=== PATIENT | female | born 1980 | race Asian ===

== ENCOUNTER 2016-06-15 22:53 | Emergency (ER) | payer BC ==
[2016-06-16] MEDS ORDERED: Triamcinolone 0.025% OINT * 15 GM TUBE TOPICAL ONE (00:11)
[2016-06-16] MEDS ORDERED: Triamcinolone 0.1% CREAM (NF) 15 GM TUBE TOPICAL ONE (00:11)
--- NOTE | 2016-06-16 00:35 | ED ---
Skin Complaint - HPI Summary HPI Summary: Patient arrives with a CC of left upper arm redness and pruritus. She states this morning she was dusting out her attic. She states she is allergic to dust , and almost immediately experienced diffuse red small pruritic areas over face , arms, and upper torso. She notes this has happened before but will disappear after taking a shower. However, after she took a shower this morning all the spots dissipated except for a small lesion on her arm which was extremely pruritic and she scratched it vigorously. After this, the lesion on the arm spread. She has been applying hydrocortisone cream all day with no relief. - History of Current Complaint Chief Complaint: EDRashSkinAbscess Time Seen by Provider: 06/15/16 23:30 Stated Complaint: RASH/POSSIBLE ALLERGIC REACTION Hx Obtained From: Patient Hx Last Menstrual Period: IUD, light menstration Onset/Duration: Started Hours Ago Skin Exposure Onset/Duration: Hours Ago Timing: Constant Onset Severity: Mild Current Severity: Moderate Pain Scale Used: no pain - pruritic Skin Location: Discrete, Arm - upper left Character: Swelling, Pruritus, Redness Aggravating Symptom(s): Clothing, Touch Alleviating Symptom(s): Nothing Related History: Possible Reaction to: Environmental Exposure - dust - Additional Pertinent History Primary Care Physician: LAMAR - Allergy/Home Medications Allergies/Adverse Reactions: Allergies Allergy/AdvReac Type Severity Reaction Status Date / Time No Known Allergies Allergy Verified 05/21/16 07:39 PMH/Surg Hx/FS Hx/Imm Hx Previously Healthy: Yes Endocrine/Hematology History: Denies: Hx Diabetes Cardiovascular History: Reports: Hx Angina Denies: Hx Congestive Heart Failure - MOTHER WITH CHF, Hx Coronary Artery Disease, Hx Hypercholesterolemia, Hx Hypertension, Hx Myocardial Infarction, Hx Valvular Heart Disease Respiratory History: Denies: Hx Asthma, Hx Chronic Obstructive Pulmonary Disease (COPD) History: Denies: Hx Renal Disease Psychiatric History: Reports: Hx Anxiety, Hx Panic Disorder - Surgical History Surgery Procedure, Year, and Place: carpal tunnel surgery 2011. reconstructive nose surgery 2009 Infectious Disease History: No Infectious Disease History: Denies: Traveled Outside the [place] in Last 30 Days - Family History Known Family History: Positive: Cardiac Disease - mother [place] at 46 - Social History Occupation: Employed Full-time Lives: With Family Alcohol Use: Occasionally Hx Substance Use: No Substance Use Type: Reports: None Hx Tobacco Use: Yes Smoking Status (MU): Heavy Every Day Tobacco Smoker Type: Cigarettes Review of Systems Constitutional: Negative Eyes: Negative ENT: Negative Cardiovascular: Negative Respiratory: Negative Musculoskeletal: Negative Skin: Negative Positive: Rash - pruritis Neurological: Negative Positive: Anxious All Other Systems Reviewed And Are Negative: Yes Physical Exam Triage Information Reviewed: Yes Vital Signs On Initial Exam: Initial Vitals Temp Pulse Resp BP Pulse Ox 98.0 F 86 18 136/90 100 06/15/16 22:56 06/15/16 22:56 06/15/16 22:56 06/15/16 22:56 06/15/16 22:56 Vital Signs Reviewed: Yes Appearance: Positive: Well-Appearing, No Pain Distress, Well-Nourished Skin: Positive: Warm, Skin Color Reflects Adequate Perfusion, Other - 8x10 erythematous slightly raised Head/Face: Positive: Normal Head/Face Inspection Eyes: Positive: Normal, EOMI, KARISSA ENT: Positive: Normal ENT inspection Neck: Positive: Supple, Nontender, No Lymphadenopathy Respiratory/Lung Sounds: Positive: Clear to Auscultation, Breath Sounds Present Cardiovascular: Positive: Normal Musculoskeletal: Positive: Normal, Strength/ROM Intact Neurological: Positive: Normal Psychiatric: Positive: Normal Diagnostics - Vital Signs Vital Signs Temp Pulse Resp BP Pulse Ox 06/15/16 22:56 98.0 F 86 18 136/90 100 - Laboratory Lab Statement: Any lab studies that have been ordered have been reviewed, and results considered in the medical decision making process. Course/Dx - Differential Diagnoses - Skin Complaint Differential Diagnoses: Cellulitis, Contact Dermatitis, Urticaria - Diagnoses Provider Diagnoses: Contact dermatitis Discharge - Discharge Plan Condition: Stable Disposition: HOME Patient Education Materials: Diphenhydramine (By mouth), Contact Dermatitis (ED ) Referrals: Pat Carter MD [Primary Care Provider] - Additional Instructions: Cool compresses to the area as needed for relief. Benadryl 25mg at bedtime May take Claritin or other off brand over the counter allergy medication during the day Triamcinolone cream 1% to area twice daily for 1 week. Images - Images Full Body (No Head): 1 - pruritic erythematous slightly raised lesion
[2016-06-16] MEDS ORDERED: diPHENhydraMINE PO* 25 MG PO ONE (00:45)
[2016-06-16 01:50] VITALS: BP 128/88
== END 2016-06-16 01:15 | disposition home or self-care (01) ==
LOC: ED 22:53
DX: L25.9 Unspecified contact dermatitis, unspecified cause (principal); L29.9 Pruritus, unspecified; R22.9 Localized swelling, mass and lump, unspecified; R21 Rash and other nonspecific skin eruption
CPT/HCPCS: 99282; A9270-GY

== ENCOUNTER 2016-06-17 19:42 | Emergency (ER) | payer BC ==
[2016-06-17] MEDS ORDERED: Ondansetron INJ* 2 MG/ML VIAL IV ONE (20:27)
[2016-06-17] MEDS ORDERED: LORazepam INJ* 2 MG/ML 1 ML VIAL IV ONE (20:27)
[2016-06-17] MEDS ORDERED: Meclizine TAB* 12.5 MG PO ONE (20:27)
[2016-06-17] MEDS ORDERED: NS 0.9% 1000 ML* 2,000 ML IV ONE (20:27)
[2016-06-17 21:21] LABS: Hematocrit 41 % (35-47); Hemoglobin 13.6 g/dl (12.0-16.0); Mean Corpuscular HGB Conc 33 g/dl (31-36); Mean Corpuscular Hemoglobin 26 pg (27-31); Mean Corpuscular Volume 79 fL (80-97); Mean Platelet Volume 7 um3 (7.4-10.4); Red Blood Count 5.27 10^6/ul (4.0-5.4); Red Cell Distribution Width 15 % (10.5-15); White Blood Count 9.1 10^3/ul (3.5-10.8)
[2016-06-17 21:34] LABS: ALT 11 U/L (7-52); AST 15 U/L (13-39); Albumin 4.2 g/dL (3.2-5.2); Alkaline Phosphatase 38 U/L (34-104); Anion Gap 8 mmol/L (2-11); BUN/Creatinine Ratio 20.6 (8-20); Blood Urea Nitrogen 13 mg/dL (6-24); C Reactive Protein 1.57 mg/L (< 5.00); CO2 Carbon Dioxide 22 mmol/L (22-32); Calcium 9.3 mg/dL (8.6-10.3); Chloride 106 mmol/L (101-111); EGFR African American 138.3 (>60); EGFR Non-African American 107.5 (>60); Globulin 2.3 g/dL (2-4); Glucose 157 mg/dL (70-100); Lipase 26 U/L (11.0-82.0); Potassium 3.6 mmol/L (3.5-5.0); Sodium 136 mmol/L (133-145); Total Protein 6.5 g/dL (6.4-8.9)
[2016-06-17 22:26] LABS: TSH (Thyroid Stimulating Horm) 1.17 mcIU/mL (0.34-5.60)
[2016-06-17] MEDS ORDERED: Ondansetron ODT TAB* 4 MG PO ONE (22:36)
[2016-06-17 22:41] LABS: Urine Bacteria Absent (Absent); Urine Bilirubin Negative (Negative); Urine Glucose Negative (Negative); Urine Nitrite Negative (Negative)
--- NOTE | 2016-06-17 22:41 | ED ---
Christal Mojica Erika, scribed for Ephraim Coleman MD on 06/17/16 at 2100 . Dizziness - HPI Summary HPI Summary: Patient is a 36-year-old female presenting to the ED with a CC of dizziness starting this morning. She describes the dizziness as "like a boat rocking back and forth." Associated symptoms include generalized weakness, lightheadedness, and nausea. Pt denies abdominal pain, vomiting, diarrhea, and urinary symptoms. Pt reports that she has been taking a 10 day course of augmentin since 2016 for a right-sided ear infection. Pt denies ear pain today, although notes she still had some yesterday. Pt reports that she feels that these other symptoms are triggering her anxiety - pt takes clonazepam. Pt took benadryl today. - History Of Current Complaint Chief Complaint: EDNauseaVomitDiarrh Stated Complaint: NAUSEA/DIZZINESS Time Seen by Provider: 06/17/16 20:04 Hx Obtained From: Patient Onset/Duration: Still Present Timing: Constant Severity Currently: Moderate Character: Lightheaded, Weak, Dizzy Alleviating Factor(s): Nothing Associated Signs And Symptoms: Positive: Nausea, Change In Medication - augmentin started 1 week ago. Negative: Vomiting, Diarrhea - Allergies/Home Medications Allergies/Adverse Reactions: Allergies Allergy/AdvReac Type Severity Reaction Status Date / Time No Known Allergies Allergy Verified 05/21/16 07:39 PMH/Surg Hx/FS Hx/Imm Hx Endocrine/Hematology History: Denies: Hx Diabetes Cardiovascular History: Reports: Hx Angina Denies: Hx Congestive Heart Failure - MOTHER WITH CHF, Hx Coronary Artery Disease, Hx Hypercholesterolemia, Hx Hypertension, Hx Myocardial Infarction, Hx Valvular Heart Disease Respiratory History: Denies: Hx Asthma, Hx Chronic Obstructive Pulmonary Disease (COPD) History: Denies: Hx Renal Disease Psychiatric History: Reports: Hx Anxiety, Hx Panic Disorder - Surgical History Surgery Procedure, Year, and Place: carpal tunnel surgery 2011. reconstructive nose surgery 2009 Infectious Disease History: No Infectious Disease History: Denies: Traveled Outside the [place] in Last 30 Days - Family History Known Family History: Positive: Cardiac Disease - mother [place] at 46 - Social History Alcohol Use: Occasionally Hx Substance Use: No Substance Use Type: Reports: None Hx Tobacco Use: Yes Smoking Status (MU): Heavy Every Day Tobacco Smoker Type: Cigarettes Review of Systems Positive: Nausea. Negative: Abdominal Pain, Vomiting, Diarrhea Negative: dysuria, frequency Neurological: Other - dizziness, lightheadedness Positive: Weakness All Other Systems Reviewed And Are Negative: Yes Physical Exam Triage Information Reviewed: Yes Vital Signs On Initial Exam: Initial Vitals Temp Pulse Resp BP Pulse Ox 97.8 F 92 20 149/100 100 06/17/16 19:45 06/17/16 19:45 06/17/16 19:45 06/17/16 19:45 06/17/16 19:45 Vital Signs Reviewed: Yes Appearance: Positive: Well-Appearing, No Pain Distress Skin: Positive: Warm, Skin Color Reflects Adequate Perfusion, Dry Head/Face: Positive: Normal Head/Face Inspection Eyes: Positive: EOMI, KARISSA ENT: Positive: Other - serous otitis media on the right with erythema Neck: Positive: Supple, Nontender Respiratory/Lung Sounds: Positive: Clear to Auscultation, Breath Sounds Present Cardiovascular: Positive: RRR Abdomen Description: Positive: Nontender, Soft Bowel Sounds: Positive: Present Musculoskeletal: Positive: Normal, Strength/ROM Intact Neurological: Positive: Normal, Sensory/Motor Intact, Alert, Oriented to Person Place, Time Psychiatric: Positive: Affect/Mood Appropriate Diagnostics - Vital Signs Vital Signs Temp Pulse Resp BP Pulse Ox 06/17/16 19:45 97.8 F 92 20 149/100 100 - Laboratory Lab Results: Lab Results 06/17/16 06/17/16 06/17/16 Range/Units 21:10 21:10 21:10 WBC 9.1 (3.5-10.8) 10^3/ul RBC 5.27 (4.0-5.4) 10^6/ul Hgb 13.6 (12.0-16.0) g/dl Hct 41 (35-47) % MCV 79 L (80-97) fL MCH 26 L (27-31) pg MCHC 33 (31-36) g/dl RDW 15 (10.5-15) % Plt Count 219 (150-450) 10^3/ul MPV 7 L (7.4-10.4) um3 Neut % (Auto) 51.0 (38-83) % Lymph % (Auto) 39.8 (25-47) % [place] % (Auto) 6.6 (1-9) % Eos % (Auto) 2.1 (0-6) % Baso % (Auto) 0.5 (0-2) % Absolute Neuts (auto) 4.6 (1.5-7.7) 10^3/ul Absolute Lymphs (auto) 3.6 (1.0-4.8) 10^3/ul Absolute Monos (auto) 0.6 (0-0.8) 10^3/ul Absolute Eos (auto) 0.2 (0-0.6) 10^3/ul Absolute Basos (auto) 0 (0-0.2) 10^3/ul Absolute Nucleated RBC 0.01 10^3/ul Nucleated RBC % 0.1 Sodium 136 (133-145) mmol/L Potassium 3.6 (3.5-5.0) mmol/L Chloride 106 (101-111) mmol/L Carbon Dioxide 22 (22-32) mmol/L Anion Gap 8 (2-11) mmol/L BUN 13 (6-24) mg/dL Creatinine 0.63 (0.51-0.95) mg/dL Est GFR ( Amer) 138.3 (>60) Est GFR (Non-Af Amer) 107.5 (>60) BUN/Creatinine Ratio 20.6 H (8-20) Glucose 157 H (70-100) mg/dL Lactic Acid 1.7 (0.5-2.0) mmol/L Calcium 9.3 (8.6-10.3) mg/dL Total Bilirubin 0.50 (0.2-1.0) mg/dL AST 15 (13-39) U/L ALT 11 (7-52) U/L Alkaline Phosphatase 38 (34-104) U/L C-Reactive Protein 1.57 (< 5.00) mg/L Total Protein 6.5 (6.4-8.9) g/dL Albumin 4.2 (3.2-5.2) g/dL Globulin 2.3 (2-4) g/dL Albumin/Globulin Ratio 1.8 (1-3) Lipase 26 (11.0-82.0) U/L TSH 1.17 (0.34-5.60) mcIU/mL Beta HCG, Quant < 0.60 mIU/mL Result Diagrams: 06/17/16 21:10 01/22/17 21:10 Lab Statement: Any lab studies that have been ordered have been reviewed, and results considered in the medical decision making process. Dizzy Course/Dx - Course Assessment/Plan: DISCUSSED RESULTS WITH PATIENT. SHE WILL DISCUSS FURTHER ANXIETY TREATMENT WITH HER DOCTOR. DISCHARGE HOME STABLE. - Diagnoses Provider Diagnoses: Nausea, Dizziness, Anxiety Discharge - Discharge Plan Condition: Stable Disposition: HOME Patient Education Materials: Acute Nausea and Vomiting (ED), Dizziness (ED), Anxiety (ED) Referrals: Pat Carter MD [Primary Care Provider] - Additional Instructions: FOLLOW UP WITH YOUR DOCTOR. RETURN TO THE EMERGENCY DEPARTMENT FOR ANY WORSENING OF YOUR CONDITION OR QUESTIONS OR CONCERNS. The documentation as recorded by the Christal curtis Erika accurately reflects the service I personally performed and the decisions made by me, Ephraim Coleman MD.
[2016-06-17 23:13] VITALS: BP 126/74
== END 2016-06-17 23:13 | disposition home or self-care (01) ==
LOC: ED 19:42
DX: R42 Dizziness and giddiness (principal); F17.210 Nicotine dependence, cigarettes, uncomplicated; R53.1 Weakness; R11.0 Nausea
CPT/HCPCS: 36415; 80053; 81003; 81015; 83605; 83690; 84443; 84702; 85025; 86140; 87086; 96374; 96375; 99282; A9270-GY; J2060; J2405

== ENCOUNTER 2016-07-08 20:42 | Emergency (ER) | payer BC ==
[2016-07-08] MEDS ORDERED: Orphenadrine Citrate IV* 30 MG/ML 2 ML VIAL IV ONE (21:08)
[2016-07-08] MEDS ORDERED: Aspirin Low Dose CHEW TAB* 81 MG PO ONE (21:08)
[2016-07-08] MEDS ORDERED: NS 0.9% 1000 ML* 1,000 ML IV ONE (21:08)
[2016-07-08] MEDS ORDERED: Dexamethasone IV* 4 MG/ML 1 ML (4 MG) IV SLOW PU ONE (21:08)
[2016-07-08] MEDS ORDERED: Acetaminophen TAB* 325 MG PO ONE (21:08)
[2016-07-08] MEDS ORDERED: Ketorolac INJ* 30 MG/ML 1 ML VIAL IV PUSH ONE (21:08)
[2016-07-08 21:45] LABS: Hematocrit 42 % (35-47); Hemoglobin 13.9 g/dl (12.0-16.0); Mean Corpuscular HGB Conc 33 g/dl (31-36); Mean Corpuscular Hemoglobin 26 pg (27-31); Mean Corpuscular Volume 79 fL (80-97); Mean Platelet Volume 7 um3 (7.4-10.4); Red Blood Count 5.37 10^6/ul (4.0-5.4); Red Cell Distribution Width 15 % (10.5-15); White Blood Count 9.7 10^3/ul (3.5-10.8)
[2016-07-08 22:01] LABS: Albumin 4.3 g/dL (3.2-5.2); BUN/Creatinine Ratio 22.8 (8-20); Calcium 9.5 mg/dL (8.6-10.3); EGFR African American 106.5 (>60); EGFR Non-African American 82.8 (>60); Globulin 2.7 g/dL (2-4); Potassium 3.7 mmol/L (3.5-5.0); Total Bilirubin 0.3 mg/dL (0.2-1.0)
--- NOTE | 2016-07-08 22:07 | RAD ---
INDICATION: Back pain with radiation to the chest COMPARISON: Most recent comparison chest x-rays dated May 21, 2016 TECHNIQUE: PA and lateral views of the chest were obtained. FINDINGS: The heart and mediastinum are normal in size and contour. The lungs are grossly clear. There is no evidence of large pleural effusion. Visualized bones are normal for the patient's age. There is no radiographic evidence of free air beneath the diaphragm IMPRESSION: No radiographic evidence of acute cardiopulmonary disease.
--- NOTE | 2016-07-08 22:08 | RAD ---
INDICATION: Back pain after moving furniture COMPARISON: None. TECHNIQUE: 2 views of the thoracic spine were obtained. FINDINGS: The vertebra are in normal alignment. No fracture is seen. Disc spaces appear maintained. . IMPRESSION: No evidence of fracture or subluxation.
[2016-07-08] MEDS ORDERED: oxyCODONE/Acetamin 5/325 MG* TAB PO ONE (22:26)
--- NOTE | 2016-07-08 22:31 | ED ---
Eduardo Mojica SooYoung, scribed for Benson Demarco MD on 07/08/16 at 2104 . Back Pain - HPI Summary HPI Summary: A 36 y/o F presents to [facility] with R back and shoulder pain onset approx 1630. Radiating to R flank and R chest. Pt states she was pushing a dresser, and she felt something pull in her back, near her R shoulder. The pain is sharp and goes up her spine and radiates around her side to her chest. Pain is rated as 8 out of 10. Pert PMHx: anxiety. Pt is a smoker, 1/2 PPD. - History of Current Complaint Chief Complaint: EDChestPainROMI Stated Complaint: CHEST PAIN Time Seen by Provider: 07/08/16 20:59 Hx Obtained From: Patient Hx Last Menstrual Period: IUD, light menstration Onset/Duration: Sudden Onset, Still Present Onset/Duration: Started Hours Ago, Still Present Timing: Constant Back Pain Location: Is Diffuse - R shoulder/back, radiating around to R flank, R breast, R-side of chest Severity Currently: Moderate Pain Intensity: 8 Pain Scale Used: 0-10 Numeric Character: Sharp - Allergies/Home Medications Allergies/Adverse Reactions: Allergies Allergy/AdvReac Type Severity Reaction Status Date / Time No Known Allergies Allergy Verified 05/21/16 07:39 PMH/Surg Hx/FS Hx/Imm Hx Previously Healthy: No Endocrine/Hematology History: Denies: Hx Diabetes Cardiovascular History: Reports: Hx Angina Denies: Hx Congestive Heart Failure - MOTHER WITH CHF, Hx Coronary Artery Disease, Hx Hypercholesterolemia, Hx Hypertension, Hx Myocardial Infarction, Hx Valvular Heart Disease Respiratory History: Denies: Hx Asthma, Hx Chronic Obstructive Pulmonary Disease (COPD) History: Denies: Hx Renal Disease Psychiatric History: Reports: Hx Anxiety, Hx Panic Disorder - Surgical History Surgery Procedure, Year, and Place: carpal tunnel surgery 2011. reconstructive nose surgery 2009 Infectious Disease History: No Infectious Disease History: Denies: Traveled Outside the [place] in Last 30 Days - Family History Known Family History: Positive: Cardiac Disease - mother [place] at 46, of CHF - Social History Occupation: Employed Full-time Lives: With Family Alcohol Use: Occasionally Hx Substance Use: No Substance Use Type: Reports: None Hx Tobacco Use: Yes Smoking Status (MU): Heavy Every Day Tobacco Smoker Type: Cigarettes Review of Systems Positive: Chest Pain - radiating from back Positive: flank pain - radiating from back Positive: Other - pos: R back pain All Other Systems Reviewed And Are Negative: Yes Physical Exam - Summary Physical Exam Summary: VITAL SIGNS: Reviewed. GENERAL: Patient is a well developed and nourished female who is lying comfortable in the stretcher. Patient is not in any acute respiratory distress. HEAD AND FACE: No signs of trauma. EYES: PERRLA, EOMI x 2. EARS: Hearing grossly intact. Ear canals and tympanic membranes are WNL MOUTH: Oropharynx within normal limits. NECK: Supple, trachea is midline, no adenopathy, no JVD. CHEST: Symmetric, no tenderness at palpation LUNGS: Clear to auscultation bilaterally. No wheezing or crackles. CVS: RRR, S1 and S2 present, no murmurs or gallops appreciated. ABDOMEN: Soft, NT. No signs of distention. Positive BS. No rebound no guarding, and no masses palpated. EXTREMITIES: FROM in all major joints, no edema, no cyanosis or clubbing. NEURO: Alert and oriented x 3. No acute neurological deficits. Speech is normal and follows commands. SKIN: Dry and warm Back: There is no ecchymosis, no deformity, positive paraspinal muscle tenderness in the thoracic spine. No vertebral tenderness. There is pin point tenderness. Triage Information Reviewed: Yes Vital Signs On Initial Exam: Initial Vitals Temp Pulse Resp BP Pulse Ox 99.5 F 110 16 142/100 100 07/08/16 20:52 07/08/16 20:52 07/08/16 20:52 07/08/16 20:52 07/08/16 20:52 Vital Signs Reviewed: Yes Diagnostics - Vital Signs Vital Signs Temp Pulse Resp BP Pulse Ox 07/08/16 20:52 99.5 F 110 16 142/100 100 - Laboratory Result Diagrams: 07/08/16 21:35 07/08/16 21:35 Lab Statement: Any lab studies that have been ordered have been reviewed, and results considered in the medical decision making process. - Radiology CXR Xray Interpretation: No Acute Changes - Impression: No radiographic evidence of acute cardiopulmonary dz Radiology Interpretation Completed By: Radiologist SP THORACOLUMBAR Xray Interpretation: No Acute Changes - IMPRESSION: No evidence of fx or sublaxation Radiology Interpretation Completed By: Radiologist - EKG 1 EKG Rhythm: Sinus Tachycardia - at [address] Segment: Normal Back Pain Course/Dx - Course Assessment/Plan: A 36 y/o F presents to [facility] with R back and shoulder pain onset approx 1630. Radiating to R flank and R chest. Pt states she was pushing a dresser, and she felt something pull in her back, near her R shoulder. The pain is sharp and goes up her spine and radiates around her side to her chest. Pain is rated as 8 out of 10. Pert PMHx: anxiety. Pt is a smoker, 1/2 PPD. Blood work wnl . Troponin is 0.00. EKG sinus tach w/o MINO. T spine x ray impression : No evidence of fracture or dislocation. CXR: No acute cardiopulmonary pathology. In the ED course she was given toradol, decadron and norflex. Patient reports symptoms have improved. She will be discharge with Pain meds. At this point I discussed all the findings and test results with the patient. Patient was instructed to return to the emergency room immediately if any of the symptoms return or worsens. Patient understands and agrees. Patient is able to ambulate in the ER. Plan of care was discussed with the patient and patient understands and agrees. All questions were answered at patient satisfaction. There were no further complaints or concerns. Neurological exam before discharge: Patient is alert and oriented x 3. No acute neurological deficits. Patient is hemodynamically stable. Patient is to follow up with primary care physician in the next 2 3 days. He understands and agrees. - Diagnoses Differential Diagnosis/HQI/PQRI: Positive: Herniated Disc, Strain, Sprain Provider Diagnoses: Back pain Discharge - Discharge Plan Condition: Stable Disposition: HOME Prescriptions: Ibuprofen TAB* [Motrin TAB* 800 MG] 800 mg PO ONCE PRN #30 tab PRN Reason: Pain Methocarbamol TAB* [Robaxin TAB*] 750 mg PO TID #9 tab Methylprednisolone [Medrol Dosepak 4 MG*] 0 mg PO .SEE DYLAN INSTRUCTION #1 dylan oxyCODONE/Acetamin 5/325 MG* [Percocet 5/325 TAB*] 1 tab PO Q6H PRN #12 tab MDD Max 4 tabs / day PRN Reason: Pain Referrals: Pat Carter MD [Primary Care Provider] - The documentation as recorded by the Eduardo curtis SooYoung accurately reflects the service I personally performed and the decisions made by me, Benson Demarco MD.
[2016-07-08 23:51] VITALS: BP 120/89
== END 2016-07-08 23:30 | disposition home or self-care (01) ==
LOC: ED 20:42
DX: M54.9 Dorsalgia, unspecified (principal); M25.511 Pain in right shoulder; X50.0XXA Overexertion from strenuous movement or load, initial encounter; Y93.89 Activity, other specified; Y92.9 Unspecified place or not applicable; F17.210 Nicotine dependence, cigarettes, uncomplicated; F41.9 Anxiety disorder, unspecified
CPT/HCPCS: 36415; 71020; 72080; 80053; 82550; 82553; 84484; 85025; 93005; 96374; 96375; 99283; A9270-GY; J1100; J1885; J2360

== ENCOUNTER 2016-07-18 22:35 | Emergency (ER) | payer BC ==
[2016-07-19 01:29] VITALS: BP 110/70
--- NOTE | 2016-09-05 14:43 | ED ---
Complex/Multi-Sys Presentation - HPI Summary HPI Summary: Pt here w/ Lt sided extremity pain and new onset LANCASTER today. She has had Lt lower extremity pain for a few weeks now and just pushing through this. She more recently developed Lt sided arm pain, worse w/ movement and tender to touch. Today she noticed a LANCASTER and took ibuprofen as well as anxiety medication. This helped but she's here as she's concerned. Denies fever, chills, neck pain, chest pain, difficulty breathing, numbness, tingling, weakness, photophobia, N/V /D, tinnitus, slurred speech, confusion, difficulty concentrating, skin changes , urinary sx, change in bowel habits, ab pain. She does not smoke nor take OBC' s - no h/o clotting or neurological issues. She has been under stress and admits to drinking caffeine routinely. May not drink as much water as she should. Pain in leg, arm are worse w/ movement. Some relief w/ ibuprofen and rest. - History Of Current Complaint Chief Complaint: EDHeadache Time Seen by Provider: 07/18/16 23:51 Hx Obtained From: Patient, Family/Maintainer Central Office - - Allergies/Home Medications Allergies/Adverse Reactions: Allergies Allergy/AdvReac Type Severity Reaction Status Date / Time No Known Allergies Allergy Verified 08/15/16 20:35 PMH/Surg Hx/FS Hx/Imm Hx Previously Healthy: Yes Endocrine/Hematology History: Denies: Hx Anticoagulant Therapy, Hx Blood Disorders, Hx Diabetes, Hx Thyroid Disease, Hx Anemia, Hx Coagulopothy Cardiovascular History: Reports: Hx Angina Denies: Hx Congestive Heart Failure - MOTHER WITH CHF, Hx Coronary Artery Disease, Hx Hypercholesterolemia, Hx Hypertension, Hx Myocardial Infarction, Hx Valvular Heart Disease Respiratory History: Denies: Hx Asthma, Hx Chronic Obstructive Pulmonary Disease (COPD) History: Denies: Hx Renal Disease Musculoskeletal History: Denies: Hx Arthritis Neurological History: Denies: Hx CVA, Hx Migraine, Hx Nerve Disease, Hx Spinal Cord Injury Psychiatric History: Reports: Hx Anxiety, Hx Panic Disorder - Surgical History Surgery Procedure, Year, and Place: carpal tunnel surgery 2011. reconstructive nose surgery 2009 Infectious Disease History: Yes Infectious Disease History: Denies: Traveled Outside the [place] in Last 30 Days - Family History Known Family History: Positive: Cardiac Disease - mother [place] at 46, of CHF - Social History Lives: With Family Alcohol Use: Occasionally Hx Substance Use: No Substance Use Type: Reports: None Hx Tobacco Use: Yes Smoking Status (MU): Current Every Day Smoker Type: Cigarettes Review of Systems Constitutional: Negative Eyes: Negative ENT: Negative Cardiovascular: Negative Respiratory: Negative Gastrointestinal: Negative Genitourinary: Negative Musculoskeletal: Other - see HPI Skin: Negative Positive: Headache - see HPI Positive: Anxious All Other Systems Reviewed And Are Negative: Yes Physical Exam Triage Information Reviewed: Yes Vital Signs On Initial Exam: Initial Vitals Temp Pulse Resp BP Pulse Ox 98.4 F 81 20 142/100 100 07/18/16 22:37 07/18/16 22:37 07/18/16 22:37 07/18/16 22:37 07/18/16 22:37 Vital Signs Reviewed: Yes Appearance: Positive: Well-Appearing, No Pain Distress, Well-Nourished - concerned, anxious Skin: Positive: Warm, Dry - no erythema, no ecchymosis, no lesions over affected areas Head/Face: Positive: Normal Head/Face Inspection - sinuses NTTP Eyes: Positive: Normal, EOMI, KARISSA - no photophobia, Conjunctiva Clear ENT: Positive: Normal ENT inspection, Hearing grossly normal, Pharynx normal, TMs normal. Negative: Nasal congestion, Nasal drainage, Tonsillar swelling, Tonsillar exudate Neck: Positive: No Lymphadenopathy, Other: - Lt trpezius m and paracervical mm are hypertonic and taught - TTP but has some relief w/ massage pressure - able ot reproduce LANCASTER w/ palpation in certain places; spinous pp NTTP; Rt side of neck less tender to palpation and although not has tight, still has some tension here. Respiratory/Lung Sounds: Positive: Clear to Auscultation, Breath Sounds Present. Negative: Rales, Rhonchi, Wheezes Cardiovascular: Positive: Normal, RRR, Pulses are Symmetrical in both Upper and Lower Extremities - pulses + 2 in UE's and LE's, cap refill < 2 secs all equal B/L, S1, S2. Negative: Murmur, Rub, Leg Edema Left, Leg Edema Right Abdomen Description: Positive: Nontender, Soft Bowel Sounds: Positive: Present Musculoskeletal: Positive: Strength/ROM Intact, Pain @ - muscles from trapezius , shoulder and Lt UE are TTP however pain improves w/ massage pressure; LE w/o pain at this time Neurological: Positive: Normal, Sensory/Motor Intact, Alert, Oriented to Person Place, Time, CN Intact II-III, Finger to Nose, Facial Symmetry, Speech Normal. Negative: Pronator Drift Present Psychiatric: Positive: Anxious - but cooperative and relieved after reviewing sources of pain and discussing most likely PAUL in nature, most likely rooting from biomechanics, sublcinical dehydration from caffeine use and lack of rehydration as well as stress w/o tension relief - [place] Coma Scale Coma Scale Total: 15 Diagnostics - Vital Signs Vital Signs Temp Pulse Resp BP Pulse Ox 07/19/16 01:10 98.2 F 07/19/16 01:00 81 110/70 94 07/19/16 00:30 80 116/86 98 07/19/16 00:04 83 97 07/19/16 00:01 85 117/78 98 07/19/16 00:00 87 97 07/18/16 23:57 84 97 07/18/16 23:55 113/73 07/18/16 22:37 98.4 F 81 20 142/100 100 - Laboratory Lab Statement: Any lab studies that have been ordered have been reviewed, and results considered in the medical decision making process. Complex Multi-Symp Course/Dx Course Of Treatment: Pt presets w/ 2 week h/o LLE pain. More recently Lt UE pain and today LANCASTER. After evaluation, pt does not appear to be having a CVA but rather PAUL tension, triggering pain and LANCASTER. Pain was reproducanle w/ movements and palpation and briefy relieves w/ massage. She agrees to seek outpt care w/ PCP for PAUL tension as well as anxiety. Reviewed danger s/sx of when to return to ED. Pt and agree w/ plan. She is comfortable upon d/c. - Diagnoses Provider Diagnoses: Muscle tension headache, Muscle strain of upper extremity, Anxiety Discharge - Discharge Plan Condition: Stable Disposition: HOME Patient Education Materials: Muscle Strain (ED), How to Give a Back Massage ( GEN), Anxiety (ED) Forms: *Work Release Referrals: Pat Carter MD [Primary Care Provider] - Additional Instructions: Stay hydrated Avoid caffeine Consider a calcium and magnesium supplement for muscle health You may also consider anti-inflammatory therapies such as ibuprofen but also foods and spices. You may further investigate options through your PCP. You may also try home massage, stretching and topical analgesics for pain relief. Follow-up with your PCP to discuss body work options such as physical therapy, aquatherapy, massage therapy, acupuncture, etc. If you develop headache with visual loss, weakness, vomiting, neck pain + fever , chest pain, shortness of breath, return to ED Attempt stress reduction techniques and counseling - discuss with your PCP.
== END 2016-07-19 01:10 | disposition home or self-care (01) ==
LOC: ED 22:35
DX: G44.209 Tension-type headache, unspecified, not intractable (principal); R51 Headache; S46.919A Strain of unspecified muscle, fascia and tendon at shoulder and upper arm level, unspecified arm, initial encounter; F41.9 Anxiety disorder, unspecified; F17.210 Nicotine dependence, cigarettes, uncomplicated; X58.XXXA Exposure to other specified factors, initial encounter
CPT/HCPCS: 99282

== ENCOUNTER 2016-08-15 20:31 | Emergency (ER) | payer BC ==
[2016-08-15] MEDS ORDERED: Aspirin Low Dose CHEW TAB* 81 MG PO ONE (21:10)
--- NOTE | 2016-08-15 22:16 | RAD ---
Indication: Chest pain. 2 views of the chest including dual energy PA views demonstrate no mediastinal shift. Heart is of normal size and configuration. Lung rao demonstrate no pleural fluid, pneumonia or pneumothorax. No changes noted since July 08, 2016. IMPRESSION: No active cardiopulmonary disease is noted.
[2016-08-15 23:37] LABS: ALT 12 U/L (7-52); Albumin 4.5 g/dL (3.2-5.2); Alkaline Phosphatase 39 U/L (34-104); BUN/Creatinine Ratio 25.7 (8-20); Blood Urea Nitrogen 18 mg/dL (6-24); CO2 Carbon Dioxide 21 mmol/L (22-32); Calcium 9.4 mg/dL (8.6-10.3); Chloride 106 mmol/L (101-111); EGFR African American 122.5 (>60); EGFR Non-African American 95.2 (>60); Globulin 2.9 g/dL (2-4); Glucose 96 mg/dL (70-100); Sodium 134 mmol/L (133-145); Total Protein 7.4 g/dL (6.4-8.9)
--- NOTE | 2016-08-15 23:46 | ED ---
Parrish Mojica Michael, scribed for Sabas Landeros MD on 08/15/16 at 2116 . HPI Chest Pain - HPI Summary HPI Summary: 36 y/o female comes to the ED presenting with intermittent episodes of sharp mid sternal chest pain for the past week. The pt reports that the episodes of chest pain have worsened throughout the day today. She states the chest pain is not aggravated by palpation or deep breathes. The pt has not taken any medication for the pain. All other symptoms are denied. The PMHx is significant for anxiety and the FHx is significant for CHF. - History of Current Complaint Chief Complaint: EDChestPainROMI Time Seen by Provider: 08/15/16 21:02 Hx Obtained From: Patient, Medical Records Onset/Duration: Started Weeks Ago, Still Present Timing: Intermittent Initial Severity: Mild Current Severity: Moderate Pain Intensity: 3 Pain Scale Used: 0-10 Numeric Chest Pain Location: Mid Sternal Chest Pain Radiates: No Character: Sharp/Stabbing Aggravating Factor(s): Nothing Alleviating Factor(s): Nothing Associated Signs and Symptoms: Positive: Chest Pain - Additional Pertinent History Primary Care Physician: [id number] - Allergy/Home Medications Allergies/Adverse Reactions: Allergies Allergy/AdvReac Type Severity Reaction Status Date / Time No Known Allergies Allergy Verified 08/15/16 20:35 PMH/Surg Hx/FS Hx/Imm Hx Endocrine/Hematology History: Denies: Hx Diabetes Cardiovascular History: Reports: Hx Angina Denies: Hx Congestive Heart Failure - MOTHER WITH CHF, Hx Coronary Artery Disease, Hx Hypercholesterolemia, Hx Hypertension, Hx Myocardial Infarction, Hx Valvular Heart Disease Respiratory History: Denies: Hx Asthma, Hx Chronic Obstructive Pulmonary Disease (COPD) History: Denies: Hx Renal Disease Psychiatric History: Reports: Hx Anxiety, Hx Panic Disorder - Surgical History Surgery Procedure, Year, and Place: carpal tunnel surgery 2012. reconstructive nose surgery 2009 Infectious Disease History: No Infectious Disease History: Denies: Traveled Outside the [place] in Last 30 Days - Family History Known Family History: Positive: Cardiac Disease - mother [place] at 46, of CHF - Social History Occupation: Employed Full-time Lives: With Family Alcohol Use: Occasionally Hx Substance Use: No Substance Use Type: Reports: None Hx Tobacco Use: Yes Smoking Status (MU): Heavy Every Day Tobacco Smoker Type: Cigarettes Review of Systems Negative: Fever Positive: Chest Pain All Other Systems Reviewed And Are Negative: Yes Physical Exam Triage Information Reviewed: Yes Vital Signs On Initial Exam: Initial Vitals Temp Pulse Resp BP Pulse Ox 97.7 F 77 18 136/91 100 08/15/16 20:34 08/15/16 20:34 08/15/16 20:34 08/15/16 20:34 08/15/16 20:34 Vital Signs Reviewed: Yes Appearance: Positive: Well-Appearing, No Pain Distress - anxious Skin: Positive: Warm Head/Face: Positive: Normal Head/Face Inspection Eyes: Positive: KARISSA ENT: Positive: Hearing grossly normal Neck: Positive: Supple, Nontender Respiratory/Lung Sounds: Positive: Clear to Auscultation, Breath Sounds Present Cardiovascular: Positive: RRR. Negative: Murmur Abdomen Description: Positive: Nontender, Soft Bowel Sounds: Positive: Present Musculoskeletal: Positive: Strength/ROM Intact Neurological: Positive: Sensory/Motor Intact, Alert, Oriented to Person Place, Time, Normal Gait Psychiatric: Positive: Anxious Diagnostics - Vital Signs Vital Signs Temp Pulse Resp BP Pulse Ox 08/15/16 20:34 97.7 F 77 18 136/91 100 - Laboratory Lab Results: Lab Results 08/15/16 08/15/16 Range/Units 23:09 23:09 Sodium 134 (133-145) mmol/L Potassium TNP Chloride 106 (101-111) mmol/L Carbon Dioxide 21 L (22-32) mmol/L Anion Gap TNP BUN 18 (6-24) mg/dL Creatinine 0.70 (0.51-0.95) mg/dL Est GFR ( Amer) 122.5 (>60) Est GFR (Non-Af Amer) 95.2 (>60) BUN/Creatinine Ratio 25.7 H (8-20) Glucose 96 (70-100) mg/dL Lactic Acid 0.8 (0.5-2.0) mmol/L Calcium 9.4 (8.6-10.3) mg/dL Total Bilirubin 0.60 (0.2-1.0) mg/dL AST TNP ALT 12 (7-52) U/L Alkaline Phosphatase 39 (34-104) U/L Troponin I 0.00 (<0.04) ng/mL Total Protein 7.4 (6.4-8.9) g/dL Albumin 4.5 (3.2-5.2) g/dL Globulin 2.9 (2-4) g/dL Albumin/Globulin Ratio 1.6 (1-3) Result Diagrams: 08/15/16 23:37 08/15/16 23:37 Lab Statement: Any lab studies that have been ordered have been reviewed, and results considered in the medical decision making process. - Radiology CXR Xray Interpretation: No Acute Changes Radiology Interpretation Completed By: Radiologist - EKG EK EKG Rhythm: Sinus Rhythm - [address] Segment: Normal Ectopy: None Chest Pain Course/Dx - Diagnoses Provider Diagnoses: Chest pain Discharge - Discharge Plan Condition: Stable Disposition: HOME Patient Education Materials: Chest Pain (ED) Referrals: Pat Carter MD [Primary Care Provider] - Additional Instructions: You should follow up with Dr. Carter within the next 2-4 days. Please return to the ED if your symptoms worsen. The documentation as recorded by the Parrish curtis Michael accurately reflects the service I personally performed and the decisions made by me, Sabas Landeros MD.
[2016-08-15 23:54] LABS: Hematocrit 41 % (35-47); Hemoglobin 13.2 g/dl (12.0-16.0); Mean Corpuscular HGB Conc 32 g/dl (31-36); Mean Corpuscular Hemoglobin 26 pg (27-31); Mean Corpuscular Volume 79 fL (80-97); Mean Platelet Volume 7 um3 (7.4-10.4); Red Blood Count 5.18 10^6/ul (4.0-5.4); Red Cell Distribution Width 14 % (10.5-15); White Blood Count 10.8 10^3/ul (3.5-10.8)
[2016-08-16 00:02] VITALS: BP 128/76
== END 2016-08-16 00:01 | disposition home or self-care (01) ==
LOC: ED 20:31
DX: R07.9 Chest pain, unspecified (principal); F17.210 Nicotine dependence, cigarettes, uncomplicated
CPT/HCPCS: 36415; 71020; 80053; 83605; 84484; 85025; 93005; 99283; A9270-GY

== ENCOUNTER 2016-12-27 17:07 | Emergency (ER) | payer BC ==
--- NOTE | 2016-12-27 21:51 | ED ---
Hali Mojica Alfonso, scribed for Sabas Landeros MD on 12/27/16 at 2146 . Palpitations / Dysrhythmia - HPI Summary HPI Summary: This patient is a 36 year old F presenting to [facility] with a chief complaint of racing palpitations since 4 days ago. Pt states she has been feeling off. Pt rates the pain 6/10 in severity. Symptoms aggravated and alleviated by nothing. Pt reports chest tightness and migraine headache (resolved). She denies any new medications. - History of Current Complaint Chief Complaint: EDHypertension Time Seen by Provider: 12/27/16 21:40 Hx Obtained From: Patient Onset/Duration: Sudden Onset, Lasting Days - 4, Still Present Timing: Constant Severity Initially: Moderate Severity Currently: Moderate Character: Fast Aggravating: Nothing Alleviating: Nothing Associated Signs & Symptoms: Chest Pain - tightness - Allergy/Home Medications Allergies/Adverse Reactions: Allergies Allergy/AdvReac Type Severity Reaction Status Date / Time No Known Allergies Allergy Verified 12/27/16 17:23 PMH/Surg Hx/FS Hx/Imm Hx Endocrine/Hematology History: Denies: Hx Diabetes Cardiovascular History: Reports: Hx Angina Denies: Hx Congestive Heart Failure - MOTHER WITH CHF, Hx Coronary Artery Disease, Hx Hypercholesterolemia, Hx Hypertension, Hx Myocardial Infarction, Hx Valvular Heart Disease Respiratory History: Denies: Hx Asthma, Hx Chronic Obstructive Pulmonary Disease (COPD) History: Denies: Hx Renal Disease Psychiatric History: Reports: Hx Anxiety, Hx Panic Disorder - Surgical History Surgery Procedure, Year, and Place: carpal tunnel surgery 2011. reconstructive nose surgery 2009 Infectious Disease History: Denies: Traveled Outside the [place] in Last 30 Days - Family History Known Family History: Positive: Cardiac Disease - mother [place] at 46, of CHF - Social History Alcohol Use: Occasionally Hx Substance Use: No Substance Use Type: Reports: None Hx Tobacco Use: Yes Smoking Status (MU): Heavy Every Day Tobacco Smoker Type: Cigarettes Review of Systems Positive: Palpitations - palpitations , Chest Pain - Tightness Positive: Headache - migraine headache (resolved) All Other Systems Reviewed And Are Negative: Yes Physical Exam Triage Information Reviewed: Yes Vital Signs On Initial Exam: Initial Vitals Temp Pulse Resp BP Pulse Ox 99.3 F 82 20 147/96 100 12/27/16 17:23 12/27/16 17:23 12/27/16 17:23 12/27/16 17:23 12/27/16 17:23 Vital Signs Reviewed: Yes Appearance: Positive: Well-Appearing, No Pain Distress Skin: Positive: Warm Head/Face: Positive: Normal Head/Face Inspection Eyes: Positive: KARISSA ENT: Positive: Hearing grossly normal Neck: Positive: Supple Respiratory/Lung Sounds: Positive: Clear to Auscultation, Breath Sounds Present Cardiovascular: Positive: RRR Abdomen Description: Positive: Nontender, Soft Bowel Sounds: Positive: Present Musculoskeletal: Positive: Strength/ROM Intact Neurological: Positive: Sensory/Motor Intact, Normal Gait Psychiatric: Positive: Affect/Mood Appropriate Diagnostics - Vital Signs Vital Signs Temp Pulse Resp BP Pulse Ox 12/27/16 20:45 98.5 F 65 147/95 100 12/27/16 19:20 99.4 F 83 16 145/89 100 12/27/16 17:23 99.3 F 82 20 147/96 100 - Laboratory Result Diagrams: 12/27/16 22:30 12/27/16 22:30 Lab Statement: Any lab studies that have been ordered have been reviewed, and results considered in the medical decision making process. - EKG 2234 Cardiac Rate: NL - BPM 61 EKG Rhythm: Sinus Rhythm Re-Evaluation - Re-Evaluation First Eval Comment: results d/w pt Course/Dx - Course Assessment/Plan: 36 year old F presenting to [facility] with a chief complaint of racing palpitations since 4 days ago. Pt reports chest tightness and migraine headache (resolved). She denies any new medications. EKG reveals NSR. Patient will be discharged with follow up from PCP. Pt is agreeable with this plan. - Diagnoses Provider Diagnoses: Hypertension Discharge - Discharge Plan Condition: Improved Disposition: HOME Patient Education Materials: Hypertension (ED) Referrals: Pat Carter MD [Primary Care Provider] - 3 Days The documentation as recorded by the Hali curtis Alfonso accurately reflects the service I personally performed and the decisions made by me, Sabas Landeros MD.
[2016-12-27 22:35] LABS: Hematocrit 44 % (35-47); Hemoglobin 14.2 g/dl (12.0-16.0); Mean Corpuscular HGB Conc 33 g/dl (31-36); Mean Corpuscular Hemoglobin 26 pg (27-31); Mean Corpuscular Volume 80 fL (80-97); Mean Platelet Volume 7 um3 (7.4-10.4); Red Blood Count 5.45 10^6/ul (4.0-5.4); Red Cell Distribution Width 16 % (10.5-15); White Blood Count 9.4 10^3/ul (3.5-10.8)
[2016-12-27 22:50] LABS: Albumin 4.6 g/dL (3.2-5.2); BUN/Creatinine Ratio 16.7 (8-20); Calcium 9.7 mg/dL (8.6-10.3); EGFR African American 118.5 (>60); EGFR Non-African American 92.2 (>60); Potassium 3.5 mmol/L (3.5-5.0); Total Protein 7.6 g/dL (6.4-8.9)
[2016-12-27 23:12] VITALS: BP 136/83
== END 2016-12-27 23:12 | disposition home or self-care (01) ==
LOC: ED 17:07
DX: I10 Essential (primary) hypertension (principal); R07.9 Chest pain, unspecified; R00.2 Palpitations; R51 Headache; F17.210 Nicotine dependence, cigarettes, uncomplicated
CPT/HCPCS: 36415; 80053; 85025; 93005; 99282

== ENCOUNTER 2017-01-09 00:43 | Emergency (ER) | payer BC ==
[2017-01-09] MEDS ORDERED: Aspirin Low Dose CHEW TAB* 81 MG PO ONE (01:12)
[2017-01-09 02:00] LABS: Hematocrit 40 % (35-47); Hemoglobin 13.7 g/dl (12.0-16.0); Mean Corpuscular HGB Conc 34 g/dl (31-36); Mean Corpuscular Hemoglobin 27 pg (27-31); Mean Corpuscular Volume 79 fL (80-97); Mean Platelet Volume 7 um3 (7.4-10.4); Red Blood Count 5.11 10^6/ul (4.0-5.4); Red Cell Distribution Width 15 % (10.5-15); White Blood Count 9.2 10^3/ul (3.5-10.8)
[2017-01-09 02:11] LABS: Albumin 4.4 g/dL (3.2-5.2); BUN/Creatinine Ratio 28.6 (8-20); Calcium 9.4 mg/dL (8.6-10.3); EGFR African American 109.7 (>60); EGFR Non-African American 85.3 (>60); Globulin 2.4 g/dL (2-4); Potassium 3.2 mmol/L (3.5-5.0); Total Bilirubin 0.4 mg/dL (0.2-1.0); Total Protein 6.8 g/dL (6.4-8.9)
--- NOTE | 2017-01-09 05:00 | ED ---
Hali Mojica Alfonso, scribed for Sabas Landeros MD on 01/09/17 at 0117 . HPI Chest Pain - HPI Summary HPI Summary: This patient is a 36 year old F presenting to [facility] with a chief complaint of diffuse CP. The pain radiates to her left arm and back. The patient rates the pain 8/10 in severity. Symptoms aggravated by recent stress and alleviated by nothing. 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 PMHx of anxiety and panic attacks. 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 - Additional Pertinent History Primary Care Physician: [id number] - Allergy/Home Medications Allergies/Adverse Reactions: Allergies Allergy/AdvReac Type Severity Reaction Status Date / Time No Known Allergies Allergy Verified 12/27/16 17:23 PMH/Surg Hx/FS Hx/Imm Hx Endocrine/Hematology History: Denies: Hx Diabetes Cardiovascular History: Reports: Hx Angina Denies: Hx Congestive Heart Failure - MOTHER WITH CHF, Hx Coronary Artery Disease, Hx Hypercholesterolemia, Hx Hypertension, Hx Myocardial Infarction, Hx Valvular Heart Disease Respiratory History: Denies: Hx Asthma, Hx Chronic Obstructive Pulmonary Disease (COPD) History: Denies: Hx Renal Disease Psychiatric History: Reports: Hx Anxiety, Hx Panic Disorder - Surgical History Surgery Procedure, Year, and Place: carpal tunnel surgery 2011. reconstructive nose surgery 2009 Infectious Disease History: No Infectious Disease History: Denies: Traveled Outside the [place] in Last 30 Days - Family History Known Family History: Positive: Cardiac Disease - mother [place] at 46, of CHF - Social History Alcohol Use: Occasionally Hx Substance Use: No Substance Use Type: Reports: None Hx Tobacco Use: Yes Smoking Status (MU): Heavy Every Day Tobacco Smoker Type: Cigarettes Review of Systems Negative: Fever Positive: Chest Pain - Diffuse with radiation to back and left arm. 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 All Other Systems Reviewed And Are Negative: Yes Physical Exam Triage Information Reviewed: Yes Vital Signs On Initial Exam: Initial Vitals Temp Pulse Resp BP Pulse Ox 97.9 F 79 18 159/115 98 01/09/17 00:51 01/09/17 00:51 01/09/17 00:51 01/09/17 00:51 01/09/17 00:51 Vital Signs Reviewed: Yes Appearance: Positive: Well-Appearing, No Pain Distress Skin: Positive: Warm Head/Face: Positive: Normal Head/Face Inspection Eyes: Positive: EOMI ENT: Positive: Hearing grossly normal Neck: Positive: Supple Respiratory/Lung Sounds: Positive: Clear to Auscultation, Breath Sounds Present Cardiovascular: Positive: RRR Abdomen Description: Positive: Nontender, Soft Bowel Sounds: Positive: Present Neurological: Positive: Sensory/Motor Intact, Alert, Oriented to Person Place, Time, Normal Gait Psychiatric: Positive: Affect/Mood Appropriate Diagnostics - Vital Signs Vital Signs Temp Pulse Resp BP Pulse Ox 01/09/17 00:51 97.9 F 79 18 159/115 98 - Laboratory Result Diagrams: 01/09/17 01:44 01/09/17 01:44 Lab Statement: Any lab studies that have been ordered have been reviewed, and results considered in the medical decision making process. - Radiology CXR Radiology Interpretation Completed By: ED Physician - negative exam - EKG 0129 Cardiac Rate: NL - BPM 73 EKG Rhythm: Sinus Rhythm Chest Pain Course/Dx - Course Assessment/Plan: This patient is a 36 year old F presenting to [facility] with a chief complaint of diffuse CP. The pain radiates to her left arm and back. The patient rates the pain 8/10 in severity. Symptoms aggravated by recent stress and alleviated by nothing. 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 PMHx of anxiety and panic attacks. CXR reveals a negative exam. Test results reveal two 0.00 Troponin values. In the ED course the patient was given Aspirin. Patient will be discharged with follow up from PCP. The patient is agreeable with this plan. - Diagnoses Provider Diagnoses: Chest pain Discharge - Discharge Plan Condition: Stable Disposition: HOME Patient Education Materials: Chest Pain (ED) Referrals: Pat Carter MD [Primary Care Provider] - 3 Days The documentation as recorded by the Hali curtis Alfonso accurately reflects the service I personally performed and the decisions made by me, Sabas Landeros MD.
[2017-01-09 05:14] VITALS: BP 100/72
--- NOTE | 2017-01-09 07:57 | RAD ---
Indication: Chest pain. 2 views of the chest including dual energy PA views demonstrate no mediastinal shift. Heart is of normal size and configuration. Lung rao are clear. IMPRESSION: No active cardiopulmonary disease is noted.
== END 2017-01-09 05:19 | disposition home or self-care (01) ==
LOC: ED 00:43
DX: R07.9 Chest pain, unspecified (principal); F17.210 Nicotine dependence, cigarettes, uncomplicated; R51 Headache
CPT/HCPCS: 36415; 71020; 80053; 82550; 83605; 83735; 84484; 85025; 93005; 99283; A9270-GY

== ENCOUNTER 2017-03-09 01:34 | Emergency (ER) | payer BC ==
[2017-03-09] MEDS ORDERED: Metoclopramide IV* 5 MG/ML 2 ML VIAL IV ONE (02:40)
[2017-03-09] MEDS ORDERED: diPHENhydraMINE IV* 50 MG/ML 1 ml VIAL (BENADRYL) IV ONE (02:40)
[2017-03-09] MEDS ORDERED: Ketorolac INJ* 30 MG/ML 1 ML VIAL IV PUSH ONE (02:40)
[2017-03-09] MEDS ORDERED: NS 0.9% 1000 ML* 1,000 ML IV ONE (02:41)
[2017-03-09 05:02] VITALS: BP 161/88
--- NOTE | 2017-03-09 06:10 | ED ---
Corine Mojica Rebecca, scribed for Florecita Bailon MD on 03/09/17 at 0247 . Headache - HPI Summary HPI Summary: Pt is a 36 y/o F who presents to ED c/o LANCASTER for a few days. Pain is described as throbbing and is currently severe, ranked 8/10. Treated with Tylenol and a Klonazepam which did not alleviated sx. Additionally c/o nausea, decreased appetite, chest tightness and anxiety secondary to LANCASTER. Denies diplopia, blurred vision, edema. Confirms she has been eating recently. No PMHx migraines/ headache. - History Of Current Complaint Chief Complaint: EDHeadache Time Seen by Provider: 03/09/17 01:50 Hx Obtained From: Patient Hx Last Menstrual Period: IUD, light menstration Onset/Duration: Started days ago, Still Present Currently Pain Is: Current Pain Scale(0-10)= - 8/10, Severe Character: Throbbing Aggravating Factor: Nothing Allevating Factors: Nothing Associated Signs And Symptoms: Nausea - Allergies/Home Medications Allergies/Adverse Reactions: Allergies Allergy/AdvReac Type Severity Reaction Status Date / Time No Known Allergies Allergy Verified 03/09/17 01:39 PMH/Surg Hx/FS Hx/Imm Hx Endocrine/Hematology History: Denies: Hx Diabetes Cardiovascular History: Reports: Hx Angina Denies: Hx Congestive Heart Failure - MOTHER WITH CHF, Hx Coronary Artery Disease, Hx Hypercholesterolemia, Hx Hypertension, Hx Myocardial Infarction, Hx Valvular Heart Disease Respiratory History: Denies: Hx Asthma, Hx Chronic Obstructive Pulmonary Disease (COPD) History: Denies: Hx Renal Disease Psychiatric History: Reports: Hx Anxiety, Hx Panic Disorder - Surgical History Surgery Procedure, Year, and Place: carpal tunnel surgery 2011. reconstructive nose surgery 2009 Infectious Disease History: No Infectious Disease History: Denies: Traveled Outside the [place] in Last 30 Days - Family History Known Family History: Positive: Cardiac Disease - mother [place] at 46, of CHF - Social History Alcohol Use: Occasionally Hx Substance Use: No Substance Use Type: Reports: None Hx Tobacco Use: Yes Smoking Status (MU): Heavy Every Day Tobacco Smoker Type: Cigarettes Review of Systems Negative: Blurred Vision, Diplopia Negative: Ear Ache Positive: Other - chest tightness. Negative: Chest Pain Negative: Shortness Of Breath Positive: Nausea, Other - Decreased appetite. Negative: Abdominal Pain, Vomiting, Diarrhea Negative: dysuria, hematuria Negative: Edema Negative: Rash Positive: Headache. Negative: Weakness Positive: Anxious All Other Systems Reviewed And Are Negative: Yes Physical Exam - Summary Physical Exam Summary: Appearance: Alert, conversive, nontoxic appearing, appears uncomfortable Skin: Warm, dry, no mottling, no rashes, no contusions HEENT: EOMI, PERRL, moist mucous membranes Neck: No masses on the neck, supple Respiratory: Clear to auscultation, breath sounds present, no rales, no rhonchi , no wheezes Cardiovascular: RRR, pulses are symmetrical in both lower and upper extremities Abdomen: Soft, non-tender Bowel Sounds: Present Musculoskeletal: No CVA tenderness, no obvious deformity, moving all extremities in a grossly normal manner Neurological: A&Ox3, CN II-XII Intact, moving all extremities symmetrically Psychiatric: Normal affect and mood Triage Information Reviewed: Yes Vital Signs On Initial Exam: Initial Vitals Temp Pulse Resp BP Pulse Ox 97.5 F 89 14 179/109 100 03/09/17 01:36 03/09/17 01:36 03/09/17 01:36 03/09/17 01:36 03/09/17 01:36 Vital Signs Reviewed: Yes - [place] Coma Scale Best Eye Response: 4 - Spontaneous Best Motor Response: 6 - Obeys Commands Best Verbal Response: 5 - Oriented Coma Scale Total: 15 Diagnostics - Vital Signs Vital Signs Temp Pulse Resp BP Pulse Ox 03/09/17 01:36 97.5 F 89 14 179/109 100 - Laboratory Lab Statement: Any lab studies that have been ordered have been reviewed, and results considered in the medical decision making process. - CT Brain CT CT Interpretation: No Acute Changes - 1. No definitive evidence of acute intracranial hemorrhage, intracranial mass effect, hydrocephalus, or depresssed calvarial fracture is apprecated. 2. There is unchanged appearing crowding of the cerebellar tonsils at the level of the foramen magnum. Tonsillar exopia is not excluded. If symptoms or concern persists, correlation with follow up CT or MRI is advised, at your clinical discretion. ED physician reviewed this radiology report and agrees. CT Interpretation Completed By: Radiologist Headache Course/Dx - Course Assessment/Plan: Pt is a 36 y/o F who presents to ED c/o LANCASTER for a few days, described as throbbing and is currently severe, ranked 8/10. Treated with Tylenol and a Klonazepam which did not alleviated sx. Additionally c/o nausea, decreased appetite, chest tightness and anxiety secondary to LANCASTER. Denies diplopia , blurred vision, edema. Confirms she has been eating recently. No PMHx migraines/headache. Brain CT reveals no acute findings. In the ED course, pt received Reglan, Benadryl, Toradol and fluids. Erasmo CT reveals no acute findings. Pt will be D/C to home with Dx of general headache with a follow up with her PCP. She understands and agrees. Elevated BP noted. - Diagnoses Provider Diagnoses: Generalized headache Discharge - Discharge Plan Condition: Stable Disposition: HOME Patient Education Materials: General Headache (ED) Referrals: Pat Carter MD [Primary Care Provider] - Additional Instructions: RETURN IF WORSE OR ANY NEW SYMPTOMS. TAKE TYELNOL AND MOTRIN FOR PAIN. The documentation as recorded by the Corine curtis Rebecca accurately reflects the service I personally performed and the decisions made by , Florecita Bailon MD.
--- NOTE | 2017-03-09 07:34 | RAD ---
INDICATION: Headache. COMPARISON: Comparison is made with a prior CT of the brain from February 18, 2011. TECHNIQUE: Contiguous axial sections of the brain were obtained from the skull base to the vertex without contrast. FINDINGS: The ventricles, cisterns and sulci are within normal limits. No significant focal abnormality or mass effect is seen. There is no evidence for hemorrhage. There is suggestion of crowding of the cerebellar tonsils at the level of the foramen magnum possibly indicating tonsillar ectopia. No significant focal osseous abnormality is seen. The visualized portion of the paranasal sinuses and mastoid air cells appear clear. IMPRESSION: 1. NO EVIDENCE FOR ACUTE INTRACRANIAL ABNORMALITY. 2. POSSIBLE TONSILLAR ECTOPIA. IF THE PATIENT HAS CLINICAL SYMPTOMS OF THIS CONSIDER MR IMAGING FOR FURTHER EVALUATION.
== END 2017-03-09 05:56 | disposition home or self-care (01) ==
LOC: ED 01:34
DX: R51 Headache (principal)
CPT/HCPCS: 70450; 96374; 96375; 99283; J1200; J1885; J2765

== ENCOUNTER 2017-06-22 21:25 | Emergency (ER) | payer BC ==
[2017-06-22] MEDS ORDERED: LORazepam INJ* 2 MG/ML 1 ML VIAL IV PUSH ONE (21:56)
[2017-06-22 22:26] LABS: ABS Basophils 0.1 10^3/ul (0-0.2); ABS Eosinophils 0.1 10^3/ul (0-0.6); ABS Lymphocytes 4.4 10^3/ul (1.0-4.8); ABS Monocytes 0.7 10^3/ul (0-0.8); ABS Neutrophils 3.9 10^3/ul (1.5-7.7); ABS Nucleated RBC 0 10^3/ul; Eosinophil % 1.2 % (0-6); Hematocrit 41 % (35-47); Hemoglobin 13.8 g/dl (12.0-16.0); Lymphocyte % 47.8 % (25-47); Mean Corpuscular HGB Conc 34 g/dl (31-36); Mean Corpuscular Hemoglobin 27 pg (27-31); Mean Corpuscular Volume 79 fL (80-97); Mean Platelet Volume 7 um3 (7.4-10.4); Nucleated Red Blood Cells % 0; Platelet Count 230 10^3/ul (150-450); Red Blood Count 5.18 10^6/ul (4.0-5.4); Red Cell Distribution Width 15 % (10.5-15); White Blood Count 9.2 10^3/ul (3.5-10.8)
[2017-06-22 22:36] LABS: EGFR Non-African American 78.9 (>60)
[2017-06-22 22:39] LABS: INR 0.84 (0.77-1.02)
[2017-06-22] MEDS ORDERED: Potassium Chlor TAB* 20 MEQ TAB.ER PO ONE (22:47)
--- NOTE | 2017-06-22 23:16 | ED ---
Yunier Mojica Stephanie, scribed for Nik Cheung on 06/22/17 at 2200 . HPI Cardiac - HPI Summary HPI Summary: The pt is a 37 y/o F presenting to the ED with c/o chest tightness that began at 21:30 today. Symptoms include dry cough and discomfort between the scapulae. The pt denies leg swelling. The pt reports a history of anxiety and usually takes clonazepam but she states that it is not working tonight. - History of Current Complaint Chief Complaint: EDPsychosocial Stated Complaint: CHEST TIGHTNESS Time Seen by Provider: 06/22/17 21:47 Hx Obtained From: Patient Hx Last Menstrual Period: IUD, light menstration Onset/Duration: Started Hours Ago - 1, Atraumatic, Still Present Timing: Constant Pain Intensity: 0 Pain Scale Used: 0-10 Numeric Chest Pain Radiates: No Character: Tightness Aggravating Factor(s): Nothing Alleviating Factor(s): Nothing Associated Signs and Symptoms: Positive: Other: - dry cough and discomfort between the scapulae - Additional Pertinent History Primary Care Physician: LAMAR - Allergy/Home Medications Allergies/Adverse Reactions: Allergies Allergy/AdvReac Type Severity Reaction Status Date / Time No Known Allergies Allergy Verified 03/09/17 01:39 PMH/Surg Hx/FS Hx/Imm Hx Endocrine/Hematology History: Denies: Hx Diabetes Cardiovascular History: Reports: Hx Angina Denies: Hx Congestive Heart Failure - MOTHER WITH CHF, Hx Coronary Artery Disease, Hx Hypercholesterolemia, Hx Hypertension, Hx Myocardial Infarction, Hx Valvular Heart Disease Respiratory History: Denies: Hx Asthma, Hx Chronic Obstructive Pulmonary Disease (COPD) History: Denies: Hx Renal Disease Psychiatric History: Reports: Hx Anxiety, Hx Panic Disorder - Surgical History Surgery Procedure, Year, and Place: carpal tunnel surgery 2011. reconstructive nose surgery 2009 Infectious Disease History: No Infectious Disease History: Denies: Traveled Outside the [place] in Last 30 Days - Family History Known Family History: Positive: Cardiac Disease - mother [place] at 46, of CHF - Social History Occupation: Employed Full-time Lives: With Family Alcohol Use: Occasionally Hx Substance Use: No Substance Use Type: Reports: None Hx Tobacco Use: Yes Smoking Status (MU): Heavy Every Day Tobacco Smoker Type: Cigarettes Review of Systems Negative: Fever Positive: Other - chest tightness Positive: Cough Positive: Other - discomfort between the scapulae. Negative: Edema All Other Systems Reviewed And Are Negative: Yes Physical Exam - Summary Physical Exam Summary: Appearance: Well appearing, no pain distress Skin: warm, dry, reflects adequate perfusion Head/face: normal Eyes: EOMI, KARISSA ENT: normal Neck: supple, non-tender Respiratory: CTA, breath sounds present Cardiovascular: RRR, pulses symmetrical Abdomen: non-tender, soft Bowel: present Musculoskeletal: normal, strength/ROM intact Neuro: normal, sensory motor intact, A&Ox3 Triage Information Reviewed: Yes Vital Signs On Initial Exam: Initial Vitals Temp Pulse Resp BP Pulse Ox 98.5 F 99 22 188/99 100 06/22/17 21:29 06/22/17 21:29 06/22/17 21:29 06/22/17 21:29 06/22/17 21:29 Vital Signs Reviewed: Yes Diagnostics - Vital Signs Vital Signs Temp Pulse Resp BP Pulse Ox 06/22/17 21:53 97 9 98 06/22/17 21:51 159/118 06/22/17 21:29 98.5 F 99 22 188/99 100 - Laboratory Lab Results: Lab Results 06/22/17 06/22/17 06/22/17 Range/Units 21:50 22:05 22:05 WBC 9.2 (3.5-10.8) 10^3/ul RBC 5.18 (4.0-5.4) 10^6/ul Hgb 13.8 (12.0-16.0) g/dl Hct 41 (35-47) % MCV 79 L (80-97) fL MCH 27 (27-31) pg MCHC 34 (31-36) g/dl RDW 15 (10.5-15) % Plt Count 230 (150-450) 10^3/ul MPV 7 L (7.4-10.4) um3 Neut % (Auto) 42.8 (38-83) % Lymph % (Auto) 47.8 H (25-47) % [place] % (Auto) 7.5 (1-9) % Eos % (Auto) 1.2 (0-6) % Baso % (Auto) 0.7 (0-2) % Absolute Neuts (auto) 3.9 (1.5-7.7) 10^3/ul Absolute Lymphs (auto) 4.4 (1.0-4.8) 10^3/ul Absolute Monos (auto) 0.7 (0-0.8) 10^3/ul Absolute Eos (auto) 0.1 (0-0.6) 10^3/ul Absolute Basos (auto) 0.1 (0-0.2) 10^3/ul Absolute Nucleated RBC 0 10^3/ul Nucleated RBC % 0 INR (Anticoag Therapy) (0.77-1.02) APTT (26.0-36.3) seconds D-Dimer, Quantitative (Less Than 230) ng/mL Sodium 136 (133-145) mmol/L Potassium 3.2 L (3.5-5.0) mmol/L Chloride 103 (101-111) mmol/L Carbon Dioxide 24 (22-32) mmol/L Anion Gap 9 (2-11) mmol/L BUN 13 (6-24) mg/dL Creatinine 0.82 (0.51-0.95) mg/dL Est GFR ( Amer) 101.4 (>60) Est GFR (Non-Af Amer) 78.9 (>60) BUN/Creatinine Ratio 15.9 (8-20) Glucose 161 H (70-100) mg/dL Calcium 9.5 (8.6-10.3) mg/dL Total Bilirubin 0.50 (0.2-1.0) mg/dL AST 17 (13-39) U/L ALT 12 (7-52) U/L Alkaline Phosphatase 50 (34-104) U/L Troponin I 0.00 (<0.04) ng/mL B-Natriuretic Peptide 18 ( - 100) pg/mL Total Protein 7.0 (6.4-8.9) g/dL Albumin 4.4 (3.2-5.2) g/dL Globulin 2.6 (2-4) g/dL Albumin/Globulin Ratio 1.7 (1-3) TSH 2.42 (0.34-5.60) mcIU/mL 06/22/17 Range/Units 22:05 WBC (3.5-10.8) 10^3/ul RBC (4.0-5.4) 10^6/ul Hgb (12.0-16.0) g/dl Hct (35-47) % MCV (80-97) fL MCH (27-31) pg MCHC (31-36) g/dl RDW (10.5-15) % Plt Count (150-450) 10^3/ul MPV (7.4-10.4) um3 Neut % (Auto) (38-83) % Lymph % (Auto) (25-47) % [place] % (Auto) (1-9) % Eos % (Auto) (0-6) % Baso % (Auto) (0-2) % Absolute Neuts (auto) (1.5-7.7) 10^3/ul Absolute Lymphs (auto) (1.0-4.8) 10^3/ul Absolute Monos (auto) (0-0.8) 10^3/ul Absolute Eos (auto) (0-0.6) 10^3/ul Absolute Basos (auto) (0-0.2) 10^3/ul Absolute Nucleated RBC 10^3/ul Nucleated RBC % INR (Anticoag Therapy) 0.84 (0.77-1.02) APTT 20.8 L (26.0-36.3) seconds D-Dimer, Quantitative < 200 (Less Than 230) ng/mL Sodium (133-145) mmol/L Potassium (3.5-5.0) mmol/L Chloride (101-111) mmol/L Carbon Dioxide (22-32) mmol/L Anion Gap (2-11) mmol/L BUN (6-24) mg/dL Creatinine (0.51-0.95) mg/dL Est GFR ( Amer) (>60) Est GFR (Non-Af Amer) (>60) BUN/Creatinine Ratio (8-20) Glucose (70-100) mg/dL Calcium (8.6-10.3) mg/dL Total Bilirubin (0.2-1.0) mg/dL AST (13-39) U/L ALT (7-52) U/L Alkaline Phosphatase (34-104) U/L Troponin I (<0.04) ng/mL B-Natriuretic Peptide ( - 100) pg/mL Total Protein (6.4-8.9) g/dL Albumin (3.2-5.2) g/dL Globulin (2-4) g/dL Albumin/Globulin Ratio (1-3) TSH (0.34-5.60) mcIU/mL Result Diagrams: 06/22/17 22:05 06/22/17 22:05 Lab Statement: Any lab studies that have been ordered have been reviewed, and results considered in the medical decision making process. - Radiology CXR Xray Interpretation: No Acute Changes Radiology Interpretation Completed By: ED Physician - Negative - EKG 21:35 EKG Rhythm: Sinus Rhythm - 98 BPM EKG Interpretation: No acute changes Disposition - Course Course Of Treatment: The pt is a 37 y/o F presenting to the ED with c/o chest tightness that began at 21:30 today. Symptoms were likely caused by anxiety. The pt will be discharged. - Differential Dx - Cardiopulmonary Differential Diagnoses - Cardiopulmonary: Pulmonary Embolism, Other - anxeity reaction/dyspnea/pneumonia - Diagnoses Provider Diagnoses: Anxiety, Panic attack, Anxiety reaction Discharge - Discharge Plan Condition: Stable Disposition: HOME Patient Education Materials: Anxiety (ED), Panic Attack (ED) Referrals: Pat Carter MD [Primary Care Provider] - 3 Days Additional Instructions: Follow up with PCP in 3 days. The documentation as recorded by the Yunier curtis Stephanie accurately reflects the service I personally performed and the decisions made by Skye osorio Emmanuel.
[2017-06-22 23:51] VITALS: BP 135/92
--- NOTE | 2017-06-23 07:47 | RAD ---
INDICATION: Short of breath COMPARISON: January 09, 2017 TECHNIQUE: An AP portable view obtained at 2210 hours is submitted. FINDINGS: Bones/Soft Tissues: There are no acute bony findings. Cardiomediastinal: The cardiomediastinal silhouette is normal. Lungs: There are no infiltrates. Pleura: There are no pleural effusions. Other: None IMPRESSION: NO ACTIVE DISEASE.
== END 2017-06-22 23:51 | disposition home or self-care (01) ==
LOC: ED 21:25
DX: F41.9 Anxiety disorder, unspecified (principal); F41.0 Panic disorder [episodic paroxysmal anxiety]; F17.210 Nicotine dependence, cigarettes, uncomplicated; Z97.5 Presence of (intrauterine) contraceptive device; R05 Cough
CPT/HCPCS: 36415; 71045; 80053; 83880; 84443; 84484; 85025; 85379; 85610; 85730; 93005; 99283; A9270-GY; J2060

== ENCOUNTER 2017-09-15 03:25 | Emergency (ER) | payer BC ==
[2017-09-15 04:14] LABS: Urine Appearance Cloudy; Urine Blood 1+ (Negative); Urine Color Yellow; Urine Ketones Trace (Negative); Urine Protein Negative (Negative); Urine Specific Gravity 1.009 (1.010-1.030); Urine Urobilinogen Negative (Negative)
[2017-09-15] MEDS ORDERED: Phenazopyridine TAB* 100 MG PO ONE (05:43)
[2017-09-15] MEDS ORDERED: oxyCODONE/Acetamin 5/325 MG* TAB PO ONE (05:43)
[2017-09-15] MEDS ORDERED: Ibuprofen TAB* 600 MG PO ONE (05:43)
[2017-09-15] MEDS ORDERED: Sulfamethox/Trimethoprim DS 800/160* TAB PO ONE (05:43)
[2017-09-15 06:08] VITALS: BP 144/89
--- NOTE | 2017-09-15 07:58 | ED ---
Ray Mojica Jason, scribed for Ephraim Coleman MD on 09/15/17 at 0649 . GI/ HPI - HPI Summary HPI Summary: This patient is a 37 year old F presenting to [facility] with a chief complaint of burning with urination and suprapubic pain since 1 day ago. She states the pain has gotten worse overnight and she feels like she urinates less. The patient rates the pain 9/10 in severity. Symptoms aggravated by nothing. Symptoms alleviated by nothing. Patient reports right flank pain and chills. Patient denies fever, abnormal vaginal discharge, and bowel symptoms. Patient includes that she has and IUD. - History of Current Complaint Chief Complaint: EDUrogenitalProblems Time Seen by Provider: 09/15/17 05:26 Stated Complaint: POSS UTI Hx Obtained From: Patient Hx Last Menstrual Period: IUD, light menstration Onset/Duration: Started Days Ago - 1 day ago, Still Present Timing: Constant Pain Intensity: 9 Location of Pain: Radiates to:, Suprapubic Pain Radiates to: Flank - right Associated Signs and Symptoms: Positive: Negative - fever, abnormal vaginal discharge, and bowel symptoms, Other: - right flank pain, suprapubic pain, burning with urination, and chills Aggravating Factor(s): Nothing Alleviating Factor(s): Nothing - Additional Pertinent History Primary Care Physician: [id number] - Allergy/Home Medications Allergies/Adverse Reactions: Allergies Allergy/AdvReac Type Severity Reaction Status Date / Time No Known Allergies Allergy Verified 09/15/17 03:34 PMH/Surg Hx/FS Hx/Imm Hx Previously Healthy: No Endocrine/Hematology History: Denies: Hx Diabetes Cardiovascular History: Reports: Hx Angina Denies: Hx Congestive Heart Failure - MOTHER WITH CHF, Hx Coronary Artery Disease, Hx Hypercholesterolemia, Hx Hypertension, Hx Myocardial Infarction, Hx Valvular Heart Disease Respiratory History: Denies: Hx Asthma, Hx Chronic Obstructive Pulmonary Disease (COPD) History: Denies: Hx Renal Disease Psychiatric History: Reports: Hx Anxiety, Hx Panic Disorder - Surgical History Surgery Procedure, Year, and Place: carpal tunnel surgery 2011. reconstructive nose surgery 2009 Infectious Disease History: No Infectious Disease History: Denies: Traveled Outside the [place] in Last 30 Days - Family History Known Family History: Positive: Cardiac Disease - mother [place] at 46, of CHF - Social History Alcohol Use: Occasionally Hx Substance Use: No Substance Use Type: Reports: None Hx Tobacco Use: Yes Smoking Status (MU): Heavy Every Day Tobacco Smoker Type: Cigarettes Review of Systems Positive: Chills. Negative: Fever Gastrointestinal: Negative - bowel sx Genitourinary: Negative - vaginal discharge Positive: burning, flank pain - right All Other Systems Reviewed And Are Negative: Yes Physical Exam - Summary Physical Exam Summary: General: well-appearing, mild pain distress Skin: warm, color reflects adequate perfusion, dry Head: normal Eyes: EOMI, KARISSA ENT: normal Neck: supple, nontender Respiratory: CTA, breath sounds present Cardiovascular: RRR Abdomen: soft, Mild tenderness to palpation in the right flank and suprapubic area. Bowel: Positive bowel sounds. Musculoskeletal: normal, strength/ROM intact Neurological: normal, sensory/motor intact, A&O x3 Psychological: affect/mood appropriate Triage Information Reviewed: Yes Vital Signs On Initial Exam: Initial Vitals Temp Pulse Resp BP Pulse Ox 98.4 F 114 20 170/117 97 09/15/17 03:30 09/15/17 03:30 09/15/17 03:30 09/15/17 03:30 09/15/17 03:30 Vital Signs Reviewed: Yes Diagnostics - Vital Signs Vital Signs Temp Pulse Resp BP Pulse Ox 09/15/17 06:06 97.8 F 111 20 144/89 96 09/15/17 06:00 24 09/15/17 03:30 98.4 F 114 20 170/117 97 - Laboratory Lab Results: Lab Results 09/15/17 Range/Units 03:36 Urine Color Yellow Urine Appearance Cloudy Urine pH 6.0 (5-9) Ur Specific [place] 1.009 L (1.010-1.030) Urine Protein Negative (Negative) Urine Ketones Trace A (Negative) Urine Blood 1+ A (Negative) Urine Nitrate Negative (Negative) Urine Bilirubin Negative (Negative) Urine Urobilinogen Negative (Negative) Ur Leukocyte Esterase 1+ A (Negative) Urine WBC (Auto) 1+(6-10/hpf) A (Absent) Urine RBC (Auto) 2+(6-10/hpf) A (Absent) Ur Squamous Epith Cells Present A (Absent) Urine Bacteria 1+ A (Absent) Urine Yeast Present A (Absent) Urine Glucose 3+(>=500 mg/dl) A (Negative) Lab Statement: Any lab studies that have been ordered have been reviewed, and results considered in the medical decision making process. GIGU Course/Dx - Course Course Of Treatment: The patients main source of pain is in the suprapubic region. There is minimal pain in the right flank region. Clinically, this does not appear to be a kidney stone. Results were discussed with the patient and the . F/U PMD; RETURN TO ED IF WORSE. - Diagnoses Provider Diagnoses: UTI (urinary tract infection) Discharge - Sign-Out/Discharge Documenting (check all that apply): Discharge - Discharge Plan Condition: Stable Disposition: HOME Prescriptions: Ibuprofen TAB* [Motrin TAB* 600 MG] 600 mg PO Q6H PRN #20 tab PRN Reason: Pain oxyCODONE/Acetamin 5/325 MG* [Percocet 5/325 TAB*] 1 tab PO Q4H PRN #6 tab MDD 6 PRN Reason: Pain Phenazopyridine 200 mg (NF) [Pyridium 200 MG tab *] 200 mg PO Q6H PRN #10 tab PRN Reason: Pain Sulfamethox/Trimethoprim DS* [Bactrim DS 800/160 TAB*] 1 tab PO BID #19 tab Patient Education Materials: Urinary Tract Infection in Women (ED) Referrals: Pat Carter MD [Primary Care Provider] - Additional Instructions: FOLLOW UP WITH YOUR DOCTOR. RETURN TO THE EMERGENCY DEPARTMENT FOR ANY WORSENING OF YOUR CONDITION; PAIN, FEVER, YOU FEEL ILL OR QUESTIONS OR CONCERNS. YOUR BLOOD PRESSURE WAS ELEVATED TODAY; FOLLOW UP WITH YOUR PRIMARY CARE DOCTOR WITHIN ONE WEEK. - Billing Disposition and Condition Condition: STABLE Disposition: HOME The documentation as recorded by the Ray curtis Jason accurately reflects the service I personally performed and the decisions made by me, Ephraim Coleman MD.
== END 2017-09-15 06:11 | disposition home or self-care (01) ==
LOC: ED 03:25
DX: N39.0 Urinary tract infection, site not specified (principal); I20.9 Angina pectoris, unspecified; F17.210 Nicotine dependence, cigarettes, uncomplicated
CPT/HCPCS: 81003; 81015; 87086; 99282; A9270-GY

== ENCOUNTER 2017-09-19 07:08 | Emergency (ER) | payer BC ==
[2017-09-19] MEDS ORDERED: diPHENhydraMINE IV* 50 MG/ML 1 ml VIAL (BENADRYL) IM ONE (07:30)
[2017-09-19] MEDS ORDERED: Promethazine INJ(RESTRICTED)* 25 MG/ML 1 ML VIAL IM ONE (07:30)
[2017-09-19] MEDS ORDERED: PROCHLORPERAZINE INJ 5 MG/ML 2 ML VIAL IM ONE (07:40)
--- NOTE | 2017-09-19 08:24 | ED ---
Liam Mojica Jennifer, scribed for Ray Yee MD on 09/19/17 at 0815 . Complex/Multi-Sys Presentation - HPI Summary HPI Summary: The patient is a 37 year old female who presents with cold symptoms since a couple days ago. The patient complains of ear pain, body aches, sinus pain and congestion, cough, and feeling dry. The patient adds that she woke up this morning at 05:00 with a pounding headache. She denies runny nose. She used a nebulizer treatment yesterday, which alleviated some of her symptoms. - History Of Current Complaint Chief Complaint: EDHeadache Time Seen by Provider: 09/19/17 08:02 Hx Obtained From: Patient Onset/Duration: Sudden Onset, Lasting Days - couple days, Still Present, Worse Since - this morning Timing: Constant Severity Currently: Moderate Severity Initially: Moderate Location: Pain At: - Sinuses, headache Character: Pressure Alleviating Factor(s): Nebulizer treatment Associated Signs And Symptoms: Positive: Other - ear pain, body aches, sinus pain and congestion, cough, "feeling dry", headache. NEGATIVE: runny nose - Allergies/Home Medications Allergies/Adverse Reactions: Allergies Allergy/AdvReac Type Severity Reaction Status Date / Time No Known Allergies Allergy Verified 09/19/17 07:12 Home Medications: Home Medications Cholecalciferol TAB* [Vitamin D TAB*] 1,000 unit PO DAILY 09/19/17 [History Confirmed 09/19/17] Multivitamins/Minerals TAB* [Theragran/minerals TAB*] 1 tab PO DAILY 09/19/17 [ History Confirmed 09/19/17] [place]-3 Fatty Acids (Nf) [Fish Oil (NF)] 1,000 mg PO DAILY 09/19/17 [History Confirmed 09/19/17] PMH/Surg Hx/FS Hx/Imm Hx Endocrine/Hematology History: Denies: Hx Diabetes Cardiovascular History: Reports: Hx Angina Denies: Hx Congestive Heart Failure - MOTHER WITH CHF, Hx Coronary Artery Disease, Hx Hypercholesterolemia, Hx Hypertension, Hx Myocardial Infarction, Hx Valvular Heart Disease Respiratory History: Denies: Hx Asthma, Hx Chronic Obstructive Pulmonary Disease (COPD) History: Denies: Hx Renal Disease Psychiatric History: Reports: Hx Anxiety, Hx Panic Disorder - Surgical History Surgery Procedure, Year, and Place: carpal tunnel surgery 2012. reconstructive nose surgery 2010 Infectious Disease History: No Infectious Disease History: Denies: Traveled Outside the [place] in Last 30 Days - Family History Known Family History: Positive: Cardiac Disease - mother [place] at 46, of CHF - Social History Alcohol Use: Daily Alcohol Amount: last night Hx Substance Use: No Substance Use Type: Reports: None Hx Tobacco Use: Yes Smoking Status (MU): Heavy Every Day Tobacco Smoker Type: Cigarettes Review of Systems ENT: Other - Sinus pain and congestion, "feeling dry" Positive: Ear Ache. Negative: Nasal Discharge Positive: Cough Positive: Myalgia Positive: Headache All Other Systems Reviewed And Are Negative: Yes Physical Exam - Summary Physical Exam Summary: General: well-appearing, no pain distress Skin: warm, color reflects adequate perfusion, dry Head: normal Eyes: EOMI, KARISSA ENT: mild nasal discharge, throat clear, mild redness with both ears without effusion Neck: supple, nontender Respiratory: CTA, breath sounds present Cardiovascular: RRR Abdomen: soft, nontender, no tenderness to palpation Bowel: present Musculoskeletal: normal, strength/ROM intact Neurological: normal, sensory/motor intact, A&O x3 Psychological: affect/mood appropriate Triage Information Reviewed: Yes Vital Signs On Initial Exam: Initial Vitals Temp Pulse Resp BP Pulse Ox 98.8 F 99 16 155/105 97 09/19/17 07:10 09/19/17 07:10 09/19/17 07:10 09/19/17 07:10 09/19/17 07:10 Vital Signs Reviewed: Yes Diagnostics - Vital Signs Vital Signs Temp Pulse Resp BP Pulse Ox 09/19/17 07:24 94 8 143/97 96 09/19/17 07:10 98.8 F 99 16 155/105 97 - Laboratory Lab Results: Lab Results 09/19/17 Range/Units 07:23 Influenza A (Rapid) Negative (Negative) Influenza B (Rapid) Negative (Negative) Lab Statement: Any lab studies that have been ordered have been reviewed, and results considered in the medical decision making process. Re-Evaluation - Re-Evaluation First Eval Re-Evaluation Time: 08:13 Change: Improved Comment: Headache is improved with medication. Complex Multi-Symp Course/Dx Course Of Treatment: No fever. URI sx. Flu neg. Tx for [place]. Tx symptomatically. - Diagnoses Provider Diagnoses: Upper respiratory infection Discharge - Sign-Out/Discharge Documenting (check all that apply): Discharge/Admit/Transfer - Discharge Plan Condition: Improved Disposition: HOME Prescriptions: guaiFENesin [Guaifenesin ER] 600 mg PO BID PRN #20 tab.er.12h PRN Reason: Congestion predniSONE TAB* [Deltasone TAB*] 50 mg PO DAILY #4 tab Patient Education Materials: Upper Respiratory Infection (ED) Forms: *Work Release Referrals: Pat Carter MD [Primary Care Provider] - Additional Instructions: Drink plenty of fluids. Use humidifier. Use saline in your nebulizer. Ibuprofen or tylenol for headache/body aches. Return if worse, trouble breathing, new symptoms or other concerns. - Billing Disposition and Condition Condition: IMPROVED Disposition: HOME The documentation as recorded by the Liam curtis Jennifer accurately reflects the service I personally performed and the decisions made by me, Ray Yee MD.
[2017-09-19 08:34] VITALS: BP 156/108
== END 2017-09-19 08:35 | disposition home or self-care (01) ==
LOC: ED 07:08
DX: J06.9 Acute upper respiratory infection, unspecified (principal); H92.09 Otalgia, unspecified ear; F17.210 Nicotine dependence, cigarettes, uncomplicated; R05 Cough; M79.1 Myalgia; R51 Headache
CPT/HCPCS: 87502; 96372; 99282; J0780; J1200; J2550